=== PATIENT | female | born 1940 | race Caucasian/White ===

== ENCOUNTER 2022-10-26 08:00 | Outpatient (CLI) | payer MEDICARE, BC ==
[2022-10-26 18:49] LABS: CALCIUM 9.3 mg/dL (8.5-10.3); CREATININE 0.8 mg/dL (0.4-1.0); POTASSIUM 3.9 mmol/L (3.5-5.0)
== END 2022-10-26 23:59 | disposition home or self-care (01) ==
LOC: LAB.N 08:00
PROVIDERS: ATTEND Physician Assistant Medical
DX: U07.1 COVID-19 (principal)
CPT/HCPCS: 36415; 80048